=== PATIENT | female | born 1950 | race Two or more races ===

== ENCOUNTER 2024-08-09 17:34 | Emergency (ER) | payer OTHER ==
[~2024-08-09] VITALS: Ht 157.5 cm; Wt 72.0 kg
[2024-08-09] MEDS ORDERED: [UNRECOGNIZED DRUG - CODE] EX (18:22)
[2024-08-09] MEDS ORDERED: HYDR25TA88 PO (18:22)
--- NOTE | 2024-08-09 18:26 | ED.PDOC ---
History of Present Illness(SKN HPI Comments 74-year-old female who came to ER for rashes. Patient states she has been having generalized, pruritic, vesicular rashes over a year. Noted rashes to be more prominent on her extremities, elbow and knee joints, abdomen, and inguinal areas. Rash would eventually burst, desquamate, scar the disappear only to reappear again on a different area. Nystatin has offered no improvement. Patient currently being managed by a title clerk automobile. Upon arrival blood pressure was 219/92 mm Hg. She has not taken her blood pressure medication today Chief Complaint: Rash Time Seen by MD: 18:25 Primary Care Provider: HUNG History of Present Illness: Nurses Notes Allergies: Coded Allergies: Cefazolin (Verified Allergy, Unknown, 08/09/24) Clindamycin (Verified Allergy, Unknown, 08/09/24) Doxycycline (Verified Allergy, Unknown, 08/09/24) Iodine (Verified Allergy, Unknown, 08/09/24) Metronidazole (Verified Allergy, Unknown, 08/09/24) Red Dye #40 (Allura Red) (Verified Allergy, Unknown, 08/09/24) Home Meds Active Scripts Winchester Tar Extract (Winchester Tar) 20 % Candice, 20 % EX TID PRN, #120 ML 3 Refills Prov:TEO KERR MD 08/09/24 Hydralazine Hcl (Hydralazine Hcl) 25 Mg Tab, 25 MG PO BID for 90 Days, #180 TAB 5 Refills Prov:TEO KERR MD 08/09/24 Information Source: Patient Mode of Arrival: Ambulatory Severity: Moderate Timing: Months Duration: Intermittent Prehospital treatment: None Location: Generalized Developed: Pruritus, Rash Wound Type: Other (vesicular/ pustular) Associated Signs and Symptoms: Redness, Pus Past Medical History PAST MEDICAL HISTORY: COPD, HTN, Thyroid Surgical History: Denies all surgeries CYCLE TOURING GUIDE History: Denies all CYCLE TOURING GUIDE Hx Family History Family History: Reviewed,noncontributory to illness Social History Smoker: Non-Smoker Alcohol: Denies ETOH Use Drugs: Denies Drug Use Lives In: Home Constitutional: denies: chills, diaphoresis, fatigue, fever, malaise, sweats, weakness, others EENTM: denies: blurred vision, double vision, ear bleeding, ear discharge, ear drainage, ear pain, ear ringing, eye pain, eye redness, hearing loss, mouth pain, mouth swelling, nasal discharge, nose bleeding, nose congestion, nose pain, photophobia, tearing, throat pain, throat swelling, voice changes, others Respiratory: denies: cough, hemoptysis, orthopnea, SOB at rest, shortness of breath, SOB with excertion, stridor, wheezing, others Cardiovascular: denies: chest pain, dizzy spells, diaphoresis, Dyspnea on exertion, edema, irregular heart beat, left arm pain, lightheadedness, palpitations, PND, syncope, others Gastrointestinal: denies: abdomen distended, abdominal pain, blood streaked bowels, constipated, diarrhea, dysphagia, difficulty swallowing, hematemesis, melena, nausea, poor appetite, poor fluid intake, rectal bleeding, rectal pain, vomiting, others Genitourinary: denies: abnormal vagina bleeding, burning, dyspareunia, dysuria, flank pain, frequency, hematuria, incontinence, pain, , vagina discharge, urgency, others Neurological: denies: dizziness, fainting, headache, left sided numbness, left sided weakness, numbness, paresthesia, pre-existing deficit, right sided numbness, right sided weakness, seizure, speech problems, tingling, tremors, weakness, others Musculoskeletal: denies: back pain, gout, joint pain, joint swelling, muscle pain, muscle stiffness, neck pain, others Integumetry: reports: rash; denies: bruises, change in color, change in hair/nails, dryness, laceration, lesions, lumps, wounds, others Allergic/Immunocompromised: denies: Difficulty Healing, Frequent Infections, Hives, Itching, others Hematologic/Lymphatic: denies: anemia, blood clots, easy bleeding, easy bruising, swollen glands, others Endocrine: denies: excessive hunger, excessive sweating, excessive thirst, excessive urination, flushing, intolerance to cold, intolerance to heat, unexplained weight gain, unexplained weight loss, others Psychiatric: denies: anxiety, bipolar disorder, depression, hopeless, panic disorder, schizophrenia, sleepless, suicidal, others Physical Exam General Appearance: No Apparent Distress, Normal HEENT: Normal ENT Inspection, Pharynx Normal, TMs Normal Neck: Full Range of Motion, Non-Tender, Normal, Normal Inspection Respiratory: Chest Non-Tender, Lungs Clear, No Accessory Muscle Use, No Respiratory Distress, Normal Breath Sounds Cardiovascular: No Edema, No JVD, No Murmur, No Gallop, Normal Peripheral Pulses, Regular Rate/Rhythm Breast Exam: Deferred Gastrointestinal: No Organomegaly, Non Tender, No Pulsatile Mass, Normal Bowel Sounds, Soft Genitalia: Deferred Pelvic: Deferred Rectal: Deferred Extremities: No calf tenderness, Normal capillary refill, Normal inspection, Normal range of motion, Non-tender, No pedal edema Musculoskeletal : Apperance: Normal Neurologic: Alert, laboratory tester II-XII nml as Tested, No Motor Deficits, Normal Affect, Normal Mood, No Sensory Deficits Cerebellar Function: Normal Reflexes: Normal Skin: Dry, Normal Color, Warm Lymphatic: No Adenopathy Was a procedure done? Was a procedure done?: No Differential Diagnosis (INTG) Differential Diagnosis: Candidiasis, Contact Dermatitis, Psoriasis, Scabies, Urticaria, Varicella X-Ray, Labs, Meds, VS Vital Signs Date Time Temp Pulse Resp B/P (MAP) Pulse Ox O2 Delivery O2 Flow Rate FiO2 08/09/24 20:02 98.6 64 18 188/85 (119) 100 98.6 08/09/24 17:40 97.8 68 18 219/92 (134) 98 97.8 210/92 (131) Time of 1ST Reevaluation: 18:21 Reevaluation 1ST: Unchanged Patient Education/Counseling: Diagnosis, Treatment Family Education/Counseling: No Family Present Departure 1 Departure Time of Disposition: 19:00 Impression: Primary Impression: Hypertension Additional Impression: Psoriasis diffusa Disposition: HOME / SELF CARE / HOMELESS Condition: Stable e-Prescriptions Winchester Tar Extract (Winchester Tar) 20 % Candice 20 % EX TID PRN, #120 ML 3 Refills Prov: TEO KERR MD 08/09/24 Hydralazine Hcl (Hydralazine Hcl) 25 Mg Tab 25 MG PO BID for 90 Days, #180 TAB 5 Refills Prov: TEO KERR MD 08/09/24 Discharged With: Self Critical Care Note Critical Care Time?: No Stability Stability form required: No Heart Score Heart Score: Heart Score Response (Comments) Value History N/A 0 EKG N/A 0 Age N/A 0 Risk Factors N/A 0 Troponin N/A 0 Total 0 I personally scribed for TEO KERR MD ([email or web address]) on 08/09/24 at 18:26. Electronically submitted by Joseph Juarez ([email or web address]). TEO KERR MD August 09, 2024 18:26
[2024-08-09] MEDS: hydrOXYzine HCL 10 MG TAB PO ONE (21:22)
[2024-08-09] MEDS: hydrALAZINE HCL 25 MG TAB PO ONE (21:22)
[2024-08-09 22:10] VITALS: BP 137/80; TEMP 97.9
[2024-08-09 22:30] VITALS: PULSE 67; RESP 20; O2SAT 99
== END 2024-08-09 22:36 | disposition home or self-care (01) ==
LOC: ER 17:42
DX: L40.9 Psoriasis, unspecified (principal); I10 Essential (primary) hypertension; J44.9 Chronic obstructive pulmonary disease, unspecified; Z79.899 Other long term (current) drug therapy; Z88.8 Allergy status to other drugs, medicaments and biological substances; Z91.041 Radiographic dye allergy status; Z88.1 Allergy status to other antibiotic agents